=== PATIENT | male | born 1975 | race Caucasian/White ===

== ENCOUNTER 2019-04-10 17:57 | Inpatient (IN) | payer MEDICARE, OTHER ==
[~2019-04-10] VITALS: Ht 180.3 cm; Wt 173.3 kg
[2019-04-10] MEDS ORDERED: MVI, ADULT NO.4 WITH VIT K 10 ML, FOLIC ACID SYRINGE for ER 1 MG, THIAMINE INJ 100 MG i... IV ONE ×4 (18:30)
[2019-04-10 18:39] LABS: BASO % 0 % (0-3); EOS # 0.2 x10^3/uL (0.0-0.7); EOS % 2 % (0-3); HEMATOCRIT 38.1 % (39.0-53.0); HEMOGLOBIN 12.1 g/dL (13.0-17.5); LYMPH # 1.4 x10^3/uL (1.0-4.8); LYMPH % 18 % (24-48); MEAN CORPUSCULAR HEMOGLOBIN 23 pg (25-35); MEAN CORPUSCULAR HGB CONC 32 g/dL (31-37); MEAN CORPUSCULAR VOLUME 73 fL (79-100); MONO # 0.3 x10^3/uL (0.0-1.1); MONO % 4 % (0-9); NEUT % 76 % (31-73); PLATELET COUNT 295 x10^3/uL (140-400); RED BLOOD COUNT 5.25 x10^6/uL (4.30-5.70); RED CELL DISTRIBUTION WIDTH 18.3 % (11.5-14.5)
[2019-04-10 18:40] LABS: CALCIUM 8.8 mg/dL (8.5-10.1); CREATININE 0.6 mg/dL (0.7-1.3); GFR 147.8; POTASSIUM 3.8 mmol/L (3.5-5.1)
[2019-04-10] MEDS ORDERED: MVI, ADULT NO.4 WITH VIT K 10 ML VIAL IV ONE (18:45)
[2019-04-10] MEDS ORDERED: THIAMINE 200 MG/2 ML VIAL. IV ONE (18:45)
[2019-04-10 18:48] LABS: ALBUMIN 3.5 g/dL (3.4-5.0); ALBUMIN/GLOBULIN RATIO 0.8 (1.0-1.7); TOTAL BILIRUBIN 0.3 mg/dL (0.2-1.0)
--- NOTE | 2019-04-10 18:58 | PHYS DOC ---
Past History Past Medical History: Anxiety, Depression, Diabetes, Other Additional Past Medical Histor: Suicidal ideation with multiple attempts last on 6 weeks ago, PTSD, CAD Past Surgical History: No Surgical History Additional Smoking Information: Smoked meth 3 weeks ago Alcohol Use: Heavy Additional Alcohol Information: 2 1/5 of vodka today Drug Use: Methamphetamine Adult General Chief Complaint Chief Complaint: ALCOHOL INTOXICATION HPI HPI 44-year-old male presents via EMS with intoxication, fall and suicidal ideation. The patient been drinking alcohol today. He's been having suicidal thoughts. Lately. He's been thinking specifically about buying bleach and drinking it. Today while he was drinking alcohol, he thinks he might a passed out. He is not exactly sure. He knows that he lost consciousness and woke up on the ground with his head hurting. He tells me that he has PTSD and he said a lot of emotional stress. He just wants his life to be over. He knows that he needs to get some help as these feelings aren't going away. He denies any other injuries or symptoms. Review of Systems Review of Systems Constitutional: Denies fever or chills [] Eyes: Denies change in visual acuity, redness, or eye pain [] HENT: Denies nasal congestion or sore throat. Fall, abrasion right forehead.[] Respiratory: Denies cough or shortness of breath [] Cardiovascular: No additional information not addressed in HPI [] GI: Denies abdominal pain, nausea, vomiting, bloody stools or diarrhea [] : Denies dysuria or hematuria [] Musculoskeletal: Denies back pain or joint pain [] Integument: Denies rash or skin lesions [] Neurologic: LOC. Denies headache, focal weakness or sensory changes [] Endocrine: Denies polyuria or polydipsia [] All other systems were reviewed and found to be within normal limits, except as documented in this note. Current Medications Current Medications Current Medications Medications (Trade) Dose Ordered Sig/Perez Start Time Stop Time Status Last Admin Dose Admin Multivitamins/ Minerals (Infuvite Adult) 10 ml STK-MED ONCE 04/10/19 18:45 04/10/19 18:45 DC Multivitamins/ Minerals 10 ml/ Folic Acid 1 mg/ Thiamine HCl 100 mg/Sodium Chloride 1,011.1 ml @ 1,000 mls/ hr 1X ONCE 04/10/19 18:30 04/10/19 19:30 04/10/19 18:50 1,000 MLS/HR Thiamine HCl (Thiamine Vial) 200 mg STK-MED ONCE 04/10/19 18:45 04/10/19 18:45 DC Allergies Allergies Allergies Coded Allergies Type Severity Reaction Last Updated Verified No Known Drug Allergies 04/10/19 No Physical Exam Physical Exam Constitutional: Well developed, morbidly obese, well nourished, no acute dist ress, non-toxic appearance. [] HENT: Abrasion right forehead. Normocephalic,, bilateral external ears normal, oropharynx dry, no oral exudates, nose normal. [] Eyes: PERRLA, EOMI, conjunctiva normal, no discharge. [] Neck: Normal range of motion, no tenderness, supple, no stridor. [] Cardiovascular:Heart rate regular rhythm, no murmur [] Lungs & Thorax: Bilateral breath sounds clear to auscultation [] Abdomen: Bowel sounds normal, soft, no tenderness, no masses, no pulsatile masses. [] Skin: Warm, dry, no erythema, no rash. [] Back: No tenderness, no CVA tenderness. [] Extremities: No tenderness, no cyanosis, no clubbing, ROM intact, no edema. [] Neurologic: Alert and oriented X 3, normal motor function, normal sensory function, no focal deficits noted. [] Psychologic: Affect intoxicated, mood suicidal[] Current Patient Data Vital Signs Vital Signs Date Time Temp Pulse Resp B/P (MAP) Pulse Ox O2 Delivery O2 Flow Rate FiO2 04/10/19 18:22 98.4 89 18 93 Room Air Lab Results Laboratory Tests Test 04/10/19 18:05 White Blood Count 8.0 x10^3/uL (4.0-11.0) Red Blood Count 5.25 x10^6/uL (4.30-5.70) Hemoglobin 12.1 g/dL (13.0-17.5) L Hematocrit 38.1 % (39.0-53.0) L Mean Corpuscular Volume 73 fL (79-100) L Mean Corpuscular Hemoglobin 23 pg (25-35) L Mean Corpuscular Hemoglobin Concent 32 g/dL (31-37) Red Cell Distribution Width 18.3 % (11.5-14.5) H Platelet Count 295 x10^3/uL (140-400) Neutrophils (%) (Auto) 76 % (31-73) H Lymphocytes (%) (Auto) 18 % (24-48) L Monocytes (%) (Auto) 4 % (0-9) Eosinophils (%) (Auto) 2 % (0-3) Basophils (%) (Auto) 0 % (0-3) Neutrophils # (Auto) 6.0 x10^3uL (1.8-7.7) Lymphocytes # (Auto) 1.4 x10^3/uL (1.0-4.8) Monocytes # (Auto) 0.3 x10^3/uL (0.0-1.1) Eosinophils # (Auto) 0.2 x10^3/uL (0.0-0.7) Basophils # (Auto) 0.0 x10^3/uL (0.0-0.2) Sodium Level 142 mmol/L (136-145) Potassium Level 3.8 mmol/L (3.5-5.1) Chloride Level 105 mmol/L (98-107) Carbon Dioxide Level 30 mmol/L (21-32) Anion Gap 7 (6-14) Blood Urea Nitrogen 7 mg/dL (8-26) L Creatinine 0.6 mg/dL (0.7-1.3) L Estimated GFR (Cockcroft-Gault) 147.8 BUN/Creatinine Ratio 12 (6-20) Glucose Level 105 mg/dL (70-99) H Calcium Level 8.8 mg/dL (8.5-10.1) Total Bilirubin 0.3 mg/dL (0.2-1.0) Aspartate Amino Transferase (AST) 24 U/L (15-37) Alanine Aminotransferase (ALT) 47 U/L (16-63) Alkaline Phosphatase 106 U/L (46-116) Total Protein 8.0 g/dL (6.4-8.2) Albumin 3.5 g/dL (3.4-5.0) Albumin/Globulin Ratio 0.8 (1.0-1.7) L Lipase 119 U/L (73-393) Ethyl Alcohol Level 180 mg/dL (0-10) H EKG EKG [] Radiology/Procedures Radiology/Procedures [] Impressions: EXAM: CT Head without IV contrast CLINICAL HISTORY: Fall, LOC, intoxicated. Right side forehead abrasion COMPARISON: None. TECHNIQUE: Routine CT of the head without contrast. Soft tissues and bone windows were reviewed. PQRS compliance statement - One or more of the following individualized dose reduction techniques were utilized for this study: 1. Automated exposure control 2. Adjustment of the mA and/or kV according to patient size 3. Use of iterative reconstruction technique FINDINGS: There is no evidence of hemorrhage, mass or extra-axial fluid collection. Webb-white differentiation is maintained with no evidence of edema. There is no mass effect or shift of the intracranial structures. The ventricles, basilar cisterns and cortical sulci are normal in size and configuration for the patients stated age. The cerebellum and brainstem are unremarkable. The calvarium demonstrates no evidence of fracture or focal lesion. There is normal aeration of the visualized paranasal sinuses and mastoid air cells. The visualized portions of the orbits are normal. IMPRESSION: No evidence for acute intracranial process. Electronically signed by: Akin Santa MD (04/10/2019 7:33 PM) [facility] [place] DICTATED AND SIGNED BY: AKIN SANTA MD DATE: 04/10/191932 CC: EDWINA GAVIN DO; PCP,NO ~ Course & Med Decision Making Course & Med Decision Making Pertinent Labs and Imaging studies reviewed. (See chart for details) Patient's labs are remarkable for an alcohol of 180. His other labs are unremarkable. With this elevated alcohol level, the patient cannot be screened for his suicidal ideation. Head CT is negative for acute findings. I will admit the patient to the hospital for intoxication and suicidal ideation. I spoke with Dr. Doss and he has accepted the patient for admission. [] Dragon Disclaimer Dragon Disclaimer This electronic medical record was generated, in whole or in part, using a voice recognition dictation system. Departure Departure: Impression: Primary Impression: Suicidal ideation Additional Impression: Alcohol intoxication Disposition: ADMITTED INPATIENT Admitting Physician: Osei Doss Condition: STABLE Referrals: PCP,NO (PCP) Problem Qualifiers Additional Impression: Alcohol intoxication Complication of substance-induced condition: uncomplicated Qualified Codes: F10.920 - Alcohol use, unspecified with intoxication, uncomplicated EDWINA GAVIN DO Apr 10, 2019 18:58
[2019-04-10 19:15] LABS: AMPHETAMINE/METHAMPHETAMINE NEG (NEG); BARBITURATES NEG (NEG); BENZODIAZEPINES NEG (NEG); CANNABINOIDS NEG (NEG); COCAINE NEG (NEG); METHADONE NEG (NEG); OPIATES NEG (NEG); PHENCYCLIDINE NEG (NEG)
[2019-04-10 19:19] LABS: BACTERIA,URINE 0 /HPF (0-FEW); BILIRUBIN,URINE NEG (NEG); CLARITY,URINE CLEAR; COLOR,URINE STRAW; GLUCOSE,URINE NEG (NEG); NITRITE,URINE NEG (NEG); RBC,URINE 0 /HPF (0-2); UROBILINOGEN,URINE 0.2 mg/dL (0.2 mg/dL); WBC,URINE 0 /HPF (0-4)
--- NOTE | 2019-04-10 19:36 | RAD ---
EXAM: CT Head without IV contrast CLINICAL HISTORY: Fall, LOC, intoxicated. Right side forehead abrasion COMPARISON: None. TECHNIQUE: Routine CT of the head without contrast. Soft tissues and bone windows were reviewed. RS compliance statement - One or more of the following individualized dose reduction techniques were utilized for this study: 1. Automated exposure control 2. Adjustment of the mA and/or kV according to patient size 3. Use of iterative reconstruction technique FINDINGS: There is no evidence of hemorrhage, mass or extra-axial fluid collection. Webb-white differentiation is maintained with no evidence of edema. There is no mass effect or shift of the intracranial structures. The ventricles, basilar cisterns and cortical sulci are normal in size and configuration for the patients stated age. The cerebellum and brainstem are unremarkable. The calvarium demonstrates no evidence of fracture or focal lesion. There is normal aeration of the visualized paranasal sinuses and mastoid air cells. The visualized portions of the orbits are normal. IMPRESSION: No evidence for acute intracranial process. Electronically signed by: Akin Connolly MD (04/10/2019 7:33 PM) [id number]
[2019-04-10] MEDS ORDERED: ONDANSETRON PF 4 MG/2 ML VIAL. IV PRN (20:15)
[2019-04-10 21:39] VITALS: BP 127/82
[2019-04-11 06:24] VITALS: BP 116/76
[2019-04-11 11:31] VITALS: BP 122/84
--- NOTE | 2019-04-11 12:42 | HP ---
ADMIT DATE: 04/10/2019 HISTORY OF PRESENT ILLNESS: The patient is a 44-year-old male patient, who served in [employer] from 1997 to 2000 and was discharged due to the fact that he has bipolar disorder and who basically brought to the Emergency Room by EMS with intoxication, fall and suicidal ideation. He was drinking alcohol heavily on the day of admission, has been having suicidal thoughts and lately has been thinking specifically about buying bleach and drinking it and today while he was drinking alcohol he thinks he might have passed out. He is not exactly sure he knows that he lost consciousness and woke up on the ground with his head hurting. He stated that he has posttraumatic stress disorder. He said a lot of emotional stress, he just wants his life to be over. He knows that he needs to get some help, this feeling is not going away. He denies any other injuries or symptoms. He apparently has had attempted suicide by cutting his forearm about 4 years ago and has had other similar attempts before. In the emergency room on arrival, he was intoxicated with suicidal ideation. He was extensively investigated and his lab work was essentially normal including his CBC and comprehensive metabolic profile. His urinalysis was unremarkable; however, his toxic screen was positive for alcohol with a blood alcohol level of 180 mg/dL and therefore a decision was made with suicidal ideation and alcohol intoxication. The patient was so intoxicated that he could not be screened for suicidal ideation. Head CT scan was unremarkable and the patient was admitted and was continued on 1:1 observation. PAST MEDICAL HISTORY: Significant for type 2 diabetes mellitus, gastroesophageal reflux disease, morbid obesity, obstructive sleep apnea, on CPAP as well as hypertension together with bipolar disorder. PAST SURGICAL HISTORY: Significant for back surgery at L5 diskectomy and appendectomy. ALLERGIES: He has no known drug allergies. MEDICATIONS: He is currently on lithium 950 mg at bedtime. He is also on trazodone 200 mg at bedtime and Seroquel 300 mg at bedtime as well as Benadryl 50 mg at bedtime. He is unable to sleep. He is on amlodipine and lisinopril for hypertension as well as metformin. FAMILY HISTORY: He has 1 older sister and a younger stepbrother, according to him both are very successful. His mother is still alive. His father when he was 5 years old. His stepfather still alive. SOCIAL HISTORY: He is single, never , has no children. Does not smoke. He was drinking alcohol heavily. He has not drank for almost 2 weeks. He also has not had any methamphetamine for almost 4 weeks and yesterday he basically drank heavily because of all the circumstances and the fact that his grandfather and he lost his car. He is currently disabled , lives in [facility]. PHYSICAL EXAMINATION: GENERAL: On arrival to the Emergency Room, he looked well and he was well-developed, morbidly obese, well-nourished, in no acute respiratory distress. There was no pallor, jaundice, cyanosis or thyromegaly. No jugular venous distention. No limb edema. VITAL SIGNS: Heart rate was 89, blood pressure was 127/82, temperature was 98.4, respiratory rate was 18 and oxygen saturation was 98% on room air. HEAD, EYES, EARS, NOSE AND THROAT: Showed normocephalic. Did have abrasions on the left forehead. NECK: Supple. HEART: Showed normal first and second heart sounds. No gallop or murmur. CHEST: Clear to auscultation. No crepitation or rhonchi. ABDOMEN: Distended, soft, nontender. NEUROLOGIC: He was intoxicated and in a suicidal mood; however, he was able to move all his extremities without difficulty with no evidence of any focal deficit. LABORATORY DATA: Work showed that his white cell count was 8000, hemoglobin 12, hematocrit 38, MCV 73 and platelet count 295,000 with normal manual differential. His chemistry showed a serum sodium 142, potassium 3.8, chloride 105, bicarbonate 30, anion gap of 7, BUN 7, creatinine 0.6, estimated GFR was 147 mL per minute. His glucose was 105, calcium was 8.8. Total bilirubin, AST, ALT, alkaline phosphatase were normal. Total protein was 8, albumin was 3.5 and lipase was 119. His urinalysis showed the urine was straw colored, clear with a pH of 7, specific gravity of 1.010. The urine was negative for protein, glucose, ketones, blood, nitrite, bilirubin and alkaline phosphatase. Urine was negative for leukocyte esterase, no rbc's, no wbc's, and no bacteria. His urine toxic screen showed that the urine was negative for opiates, methadone, barbiturates, phencyclidine, methamphetamine, amphetamine, benzodiazepine, cocaine, and cannabinoids. His blood alcohol level was high at 180 mg/dL and a CT scan of the head showed there is no evidence of hemorrhage, mass, or extraaxial fluid collection. Sánchez-white differentiation is maintained with no evidence of edema. There is no mass effect or shift of the intracranial structures. The ventricles, basilar cisterns and cortical sulci are normal in size and configuration for the patient's stated age. The cerebellum and brainstem are unremarkable. The calvarium demonstrates no evidence of fracture or focal lesion. There is normal aeration of the visualized paranasal sinuses and mastoid air cells. The visualized portion of the orbits are normal. ASSESSMENT AND PLAN: The patient was admitted with diagnosis of alcohol intoxication and suicidal ideation. He was given a banana bag and ondansetron and was admitted for 1:1 observation. Once the patient is awake, alert and medically stable, he will be screened for his suicidal ideation. NIECY MONZON MD DR: BELLA/evon JOB#: [id number] / [id number]
== END 2019-04-11 15:36 | disposition home or self-care (01) | DRG 897 ==
LOC: ER 17:57 → 1 SOUTH 20:00
PROVIDERS: ADMIT Internal Medicine; ATTEND Internal Medicine
DX: F10.129 Alcohol abuse with intoxication, unspecified (principal); R45.851 Suicidal ideations; Z68.43 Body mass index [BMI] 50.0-59.9, adult; E11.9 Type 2 diabetes mellitus without complications; F31.9 Bipolar disorder, unspecified; F43.10 Post-traumatic stress disorder, unspecified; I10 Essential (primary) hypertension; I25.10 Atherosclerotic heart disease of native coronary artery without angina pectoris; Y90.6 Blood alcohol level of 120-199 mg/100 ml; Z91.5 Personal history of self-harm; E66.01 Morbid (severe) obesity due to excess calories; F41.9 Anxiety disorder, unspecified; G47.33 Obstructive sleep apnea (adult) (pediatric); K21.9 Gastro-esophageal reflux disease without esophagitis; W18.39XA Other fall on same level, initial encounter; Y93.89 Activity, other specified; Y92.89 Other specified places as the place of occurrence of the external cause; Y99.8 Other external cause status
CPT/HCPCS: 36415; 70450; 80053; 80307; 81001; 83690; 85025; 96365; 96366; G0480; 99285-25; J7030